=== PATIENT | female | born 1940 | race Caucasian/White ===

== ENCOUNTER 2022-10-16 11:48 | Inpatient (IN) | payer MEDICARE ==
[~2022-10-16] VITALS: Ht 162.6 cm; Wt 52.2 kg
[2022-10-16 11:56] VITALS: BP_SYST 133
--- NOTE | 2022-10-16 12:11 | NUR ---
Placed in room 02 . Placed on shelter monitor, blood pressure machine and pulse oximeter. To gown for exam. Side rails up. Report given to JACK VELAZQUEZ.
--- NOTE | 2022-10-16 12:35 | NUR ---
MD DR ARNOLD AT BEDSIDE
[2022-10-16 12:36] LABS: BASOPHILS # (AUTO) 0.1 K/uL (0.0-0.2); BASOPHILS % (AUTO) 0.4 % (0.0-2.0); EOSINOPHILS % (AUTO) 0.1 % (0.0-4.0); HEMATOCRIT 38.7 % (36-48); HEMOGLOBIN 13.2 g/dL (12.0-16.0); LYMPHOCYTES # (AUTO) 0.7 K/uL (1.0-5.5); LYMPHOCYTES % (AUTO) 4.3 % (20.5-51.5); MEAN CORPUSCULAR HEMOGLOBIN 31 pg (27-31); MEAN CORPUSCULAR HGB CONC 34 % (32-36); MEAN CORPUSCULAR VOLUME 92 fL (79.0-98.0); MONOCYTES % (AUTO) 6.3 % (1.7-9.3); NEUTROPHILS % (AUTO) 88.9 % (40.0-70.0); PLATELET COUNT (AUTO) 301 K/uL (130-430); RED CELL DISTRIBUTION WIDTH 13.4 % (9.0-15.0); WHITE BLOOD COUNT (AUTO) 15.7 K/uL (4.8-10.8)
--- NOTE | 2022-10-16 12:46 | NUR ---
PT BIBA AWAKE AND CONFUSED, AOX1. NO SOB OR DISTRESS. PT WAS BROUGHT IN BECAUSE HER SON CALLED 911 AFTER SEEING HIS MOM ON THE FLOOR AT HOME NEAR HER COUGH. PT SON DENIES FALL OR KO. HE SAID SHE SLID ON THE FLOOR AND WAS UNABLE TO GET UP. PT WAS VERY UNKEPT AND SOILED UPON ARRIVAL. PT HAS HX OF DEMENTIA.
[2022-10-16 12:54] LABS: ANION GAP 7 (5-15); CHLORIDE 106 mmol/L (98-107); CREATININE 0.72 mg/dL (0.55-1.30); GLUCOSE 117 mg/dL (70-99); UREA NITROGEN, BLOOD 29 mg/dL (8-21)
[2022-10-16 13:01] LABS: ALANINE AMINOTRANSFERASE 46 U/L (12-78); ALBUMIN 2.3 g/dL (3.4-4.8); ASPARTATE AMINOTRANSFERASE 61 U/L (10-37); TOTAL BILIRUBIN 0.9 mg/dL (0.0-1.0)
[2022-10-16 13:11] LABS: ACETAMINOPHEN < 1 ug/mL (1-30); ALCOHOL, BLOOD < 3 mg/dL (<10)
[2022-10-16 13:34] LABS: BILIRUBIN,URINE NEGATIVE (NEGATIVE); CLARITY/URINE CLEAR (CLEAR); COLOR,URINE YELLOW (YELLOW); GLUCOSE,URINE NEGATIVE (NEGATIVE); KETONES,URINE TRACE (NEGATIVE); LEUKOCYTE ESTERASE ,URINE NEGATIVE (NEGATIVE); NITRITE, URINE NEGATIVE (NEGATIVE); PROTEIN URINE TRACE (NEGATIVE); UROBILINOGEN,URINE 0.2 (0.2-1.0)
[2022-10-16 13:35] LABS: BLOOD, URINE TRACE (NEGATIVE)
[2022-10-16 13:42] LABS: BACTERIA,URINE None Seen /HPF (None Seen); MUCUS,URINE None Seen /LPF (None Seen); RBC,URINE 0-3 /HPF (0-3); WBC,URINE 0-3 /HPF (0-3)
[2022-10-16 13:49] LABS: BARBITURATE, URINE NEGATIVE (NEG <=200); BENZODIAZEPINE, URINE NEGATIVE (NEG <=150); CANNABINOID, URINE NEGATIVE (NEG <=50); COCAINE, URINE NEGATIVE (NEG <=150); METHAMPHETAMINES SCREEN,URINE NEGATIVE (NEG <=500); OPIATE, URINE NEGATIVE (NEG <=100); PHENCYCLIDINE SCREEN,URINE NEGATIVE (NEG <=25); UR TRICYCLIC ANTIDEPRESSANTS NEGATIVE (NEG <=300); URINE AMPHETAMINE NEGATIVE (NEG <=500); URINE METHADONE NEGATIVE (NEG <=200); URINE OXYCODONE SCREEN NEGATIVE (NEG <=100); URINE PROPOXYPHENE SCREEN NEGATIVE (NEG <=300)
--- NOTE | 2022-10-16 15:34 | NUR ---
DR. WOODS, [facility] DOC, PAGED BACK TO SPEAK TO DR. DUARTE REGARDING PT STATUS.
[2022-10-16] MEDS ORDERED: NACL 0.9% 1,000 ML IV ONE (16:00)
[2022-10-16] MEDS ORDERED: cefTRIAXone 1 GM in D5W 50 ML IV ONE (16:00)
[2022-10-16] MEDS ORDERED: cefTRIAXone 1 GM VIAL ONE (17:02)
--- NOTE | 2022-10-16 17:25 | NUR ---
Admit bed requested Patient will be admitted to care of Dr. PATEL. Admitted to TELE unit. Diagnosis LOC, CELLULITIS, DEHYDRATION Inpatient (Yes or No) YES Observation (Yes or No) NO Orientation concerns or request close to nursing station (Yes or No) NO Covid Status NEG On vent or bipap NO Isolation requirements NO Needs a sitter NO From Home (Yes or if No enter name of facility) HOME Requires Dialysis (Yes or No) NO Med Rec Completed (Yes of No) YES
--- NOTE | 2022-10-16 17:26 | NUR ---
PT SON SAY THAT THE PT DOES NOT TAKE MEDS AT HOME.
[2022-10-16] MEDS ORDERED: LR 1,000 ML IV SCH (17:30)
--- NOTE | 2022-10-16 18:06 | NUR ---
PT IN BED, VSS. SON AT BEDSIDE. PT WAS WAITINGFOR A MEEKS TRANSFER, BUT NOW WAITING FOR A ADMIT TELE ROOM.
--- NOTE | 2022-10-16 18:39 | NUR ---
Patient will be admitted to care of [facility]. Admitted to TELE unit. Will go to room 120A. Belongings list completed. Complete and up to date summary report printed. SBAR report to be given at bedside with opportunity for questions.
[2022-10-16 19:30] VITALS: BP_SYST 142
[2022-10-16] MEDS ORDERED: PIPERACILLIN/TAZO 2.25G/DEX-IS 50 ML IV ONE (21:15)
[2022-10-16] MEDS: D5LR 1,000 ML IV SCH (21:30)
[2022-10-16] MEDS ORDERED: ACETAMINOPHEN 325 MG TABLET PO PRN (21:30)
[2022-10-17] MEDS ORDERED: PIPERACILLIN/TAZO 2.25G/DEX-IS 50 ML IV SCH
[2022-10-17 00:24] VITALS: BP_SYST 116
[2022-10-17] MEDS: AMPICILLIN SODIUM/SULBACTAM NA 3 GM in NS 100 ML IV SCH ×4 (01:13→18:43)
--- NOTE | 2022-10-17 05:05 | NUR ---
CONSULTATION PAGED/CALLED Reason for Consultation: CELLULITIS Person Who was Notified: KRISTAN Consulting Physician: WENDY Oracle Specialist Specialty: Ordering Physician: JORGE
--- NOTE | 2022-10-17 05:38 | NUR ---
CONSULTATION PAGED/CALLED Reason for Consultation: ALOC Person Who was Notified: DR MAO Consulting Physician: DR MAO Cloth Handler Specialty: Ordering Physician: JORGE
--- NOTE | 2022-10-17 05:45 | NUR ---
SPEECH THERPYCONSULTATION PAGED/CALLED Reason for Consultation: SPEECH THERAPY Person Who was Notified: VOICE MAIL Consulting Physician: Supervisor Decorating Specialty: Ordering Physician: JORGE
[2022-10-17] MEDS: D5LR 1,000 ML IV SCH ×2 (06:26→23:22)
[2022-10-17 08:00] VITALS: BP_SYST 136
--- NOTE | 2022-10-17 08:00 | NUR ---
Initial Notes Patient is AOx1. Patient is confused. No ss of distress noted. Breathing is even and nonlabored, on room air. No SOB noted. Patient denies pain. No facial grimace noted. Vital signs obtained, as documented. Ultrasound being done at bedside. Safety precautions in place and call light within reach.
[2022-10-17 08:26] LABS: ANION GAP 7 (5-15); CALCIUM 8.7 mg/dL (8.4-11.0); CHLORIDE 112 mmol/L (98-107); CREATININE 0.58 mg/dL (0.55-1.30); GLUCOSE 89 mg/dL (70-99); UREA NITROGEN, BLOOD 25 mg/dL (8-21)
[2022-10-17 08:41] LABS: ALANINE AMINOTRANSFERASE 28 U/L (12-78); ALBUMIN 1.9 g/dL (3.4-4.8); ASPARTATE AMINOTRANSFERASE 53 U/L (10-37); FREE T4 (FREE THYROXINE) 1.3 ng/dl (0.8-1.5); THYROID STIMULATING HORMONE 4.04 uIu/mL (0.36-3.74); TOTAL BILIRUBIN 0.7 mg/dL (0.0-1.0)
[2022-10-17 09:05] LABS: BASOPHILS % (AUTO) 0.2 % (0.0-2.0); EOSINOPHILS # (AUTO) 0.1 K/uL (0.0-0.4); EOSINOPHILS % (AUTO) 0.5 % (0.0-4.0); HEMATOCRIT 32.5 % (36-48); LYMPHOCYTES # (AUTO) 0.7 K/uL (1.0-5.5); LYMPHOCYTES % (AUTO) 6.2 % (20.5-51.5); MEAN CORPUSCULAR HEMOGLOBIN 31 pg (27-31); MEAN CORPUSCULAR HGB CONC 34 % (32-36); MEAN CORPUSCULAR VOLUME 92 fL (79.0-98.0); MONOCYTES # (AUTO) 0.8 K/uL (0.0-1.0); MONOCYTES % (AUTO) 6.4 % (1.7-9.3); NEUTROPHILS # (AUTO) 10.4 K/uL (1.8-7.7); NEUTROPHILS % (AUTO) 86.7 % (40.0-70.0); PLATELET COUNT (AUTO) 271 K/uL (130-430); RED BLOOD CELL COUNT(AUTO) 3.55 MIL/uL (4.2-6.2); RED CELL DISTRIBUTION WIDTH 13.9 % (9.0-15.0)
[2022-10-17 09:13] LABS: CKMB RELATIVE INDEX 0.6 (0.0-2.9); CREATINE KINASE MB 1.9 ng/mL (0-3.6)
--- NOTE | 2022-10-17 10:07 | NUR ---
ATTENDING MD DR PATEL WAS CALLED, RE: RESULT-- POSITIVE FOR THROMBUS. SPOKE TO RADHA
--- NOTE | 2022-10-17 10:46 | NUR ---
PHYSICAL THERAPY ORDER HAS BEEN RECEIVED. RN REPORTS THAT THE ULTRASOUND INDICATES A DVT. PLAN: AWAIT CLEARANCE FROM MD. FOLLOW UP TOMORROW.
--- NOTE | 2022-10-17 11:29 | NUR ---
Notes Iv infiltrated. New IV inserted. 20 G Right forearm. Blood return. Flushed well. Addendum: 10/17/22 at 1225 by Kathy Brooks LVN Notes Iv infiltrated. New IV inserted. 20 G Left forearm. Blood return. Flushed well.
[2022-10-17] MEDS ORDERED: BALSAM PERU/CASTOR OIL 56.7 GM OINT...G. TP ONE (11:30)
--- NOTE | 2022-10-17 11:31 | NUR ---
MD FRANKS made aware of US Doppler results, positive for thrombus to L common femoral vein, nonocclusive. at bedside with patient, speaking to family. Addendum: 10/17/22 at 1135 by Kathy Brooks LVN Wrong patient chart Addendum: 10/17/22 at 1136 by Kathy Brooks LVN MD FRANKS made aware of US Doppler results, positive for thrombus to L common femoral vein, nonocclusive. at bedside with patient, speaking to family. * correct patient chart*
[2022-10-17] MEDS ORDERED: POTASSIUM CHLORIDE 20 MEQ TAB.PRT.SR PO ONE (11:45)
[2022-10-17 11:47] VITALS: BP_SYST 124
[2022-10-17 13:01] LABS: INR 1.1 (0.8-1.2)
--- NOTE | 2022-10-17 13:35 | NUR ---
ST EVALUATION COMPLETED. ST TX NOT INDICATED AT THIS TIME. RECOMMEND PO DIET OF PUREE/THIN LIQUID. 1:1 DISTANT SUPERVISION AND FULL ASPIRATION PRECAUTIONS.
--- NOTE | 2022-10-17 14:30 | NUR ---
Notes Patient has been cleaned and repositioned. Patient has wound on right medial and posterior ankle. Wound care done.
[2022-10-17] MEDS ORDERED: VANCOMYCIN HCL 1,000 MG in NS 250 ML IV SCH (16:00)
[2022-10-17 16:46] VITALS: BP_SYST 112
--- NOTE | 2022-10-17 17:13 | NUR ---
Notes Patient has low grade fever 99.4 F. Cooling measures in place. Bed is locked, alarm on and at lowest position. Call light within reach.
--- NOTE | 2022-10-17 17:40 | NUR ---
Notes Patient is afebrile. Patient denies pain. No ss of distress noted. Breathing is even and nonlabored, on room air. Bed locked, alarm on, and at lowest position. Call light within reach.
--- NOTE | 2022-10-17 18:51 | NUR ---
Closing Notes Patient is awake, eating dinner. No ss of distress noted. Breathing is even and nonlabored, on room air. Afebrile. No facial grimace noted. IVF running, IV patent. Patient is stable. All needs met. Bed locked, exist alarm on, and at lowest position. Call light within reach.
[2022-10-17 21:00] VITALS: BP_SYST 117
[2022-10-17] MEDS ORDERED: ENOXAPARIN SODIUM 30 MG/0.3 ML SYRINGE SUBCUT SCH (22:00)
[2022-10-17] MEDS: CEFEPIME 1 GM in D5W 50 ML IV SCH (23:23)
[2022-10-17] MEDS: APIXABAN 2.5 MG TABLET PO SCH (23:27)
[2022-10-18 00:06] VITALS: BP_SYST 118
[2022-10-18] MEDS: AMPICILLIN SODIUM/SULBACTAM NA 3 GM in NS 100 ML IV SCH ×2 (01:20→06:37)
[2022-10-18 01:26] VITALS: BP_SYST 127
[2022-10-18 07:35] LABS: BASOPHILS % (AUTO) 0.3 % (0.0-2.0); EOSINOPHILS # (AUTO) 0.2 K/uL (0.0-0.4); EOSINOPHILS % (AUTO) 1.5 % (0.0-4.0); HEMATOCRIT 31.4 % (36-48); HEMOGLOBIN 10.6 g/dL (12.0-16.0); LYMPHOCYTES # (AUTO) 0.9 K/uL (1.0-5.5); LYMPHOCYTES % (AUTO) 8.8 % (20.5-51.5); MEAN CORPUSCULAR HEMOGLOBIN 31 pg (27-31); MEAN CORPUSCULAR HGB CONC 34 % (32-36); MEAN CORPUSCULAR VOLUME 93 fL (79.0-98.0); MONOCYTES # (AUTO) 0.5 K/uL (0.0-1.0); MONOCYTES % (AUTO) 4.6 % (1.7-9.3); NEUTROPHILS # (AUTO) 8.9 K/uL (1.8-7.7); NEUTROPHILS % (AUTO) 84.8 % (40.0-70.0); PLATELET COUNT (AUTO) 248 K/uL (130-430); WHITE BLOOD COUNT (AUTO) 10.5 K/uL (4.8-10.8)
[2022-10-18 07:50] LABS: ANION GAP 6 (5-15); CALCIUM 8.2 mg/dL (8.4-11.0); CHLORIDE 109 mmol/L (98-107); CREATININE 0.62 mg/dL (0.55-1.30); GLUCOSE 110 mg/dL (70-99); UREA NITROGEN, BLOOD 19 mg/dL (8-21)
[2022-10-18 07:58] VITALS: BP_SYST 128
--- NOTE | 2022-10-18 07:58 | NUR ---
INITIAL ROUNDS Received pt AAOx1, very confused, no s/s resp distress, no s/s pain or discomfort. IVF infusing well to LFA at ordered rate with no s/s infiltration at this time. Noted dressing to right medial ankle clean, dry and intact. Unable to assess pt's posterior skin due to pt flat out refusing to turn. Will try again later. Side rails up x3, bed alarm on and room across from nursing station for safety. Call light within reach.
[2022-10-18] MEDS: APIXABAN 2.5 MG TABLET PO SCH ×2 (09:36→22:17)
[2022-10-18] MEDS: CEFEPIME 1 GM in D5W 50 ML IV SCH ×2 (09:38→22:16)
[2022-10-18] MEDS: BALSAM PERU/CASTOR OIL 56.7 GM OINT...G. TP SCH (09:40)
[2022-10-18 12:00] VITALS: BP_SYST 132
--- NOTE | 2022-10-18 14:51 | NUR ---
INFORMED RN VIOLETA SEVERAL TIMES( THRU DEWAYNE) THAT PT IS OFF MONITOR. PER RN VIOLETA, PT REMOVES THE TELE BOX AND REFUSED TO KEEP IT ON.
[2022-10-18 16:00] VITALS: BP_SYST 127
--- NOTE | 2022-10-18 17:40 | NUR ---
Dietitian Recommendations * Continue puree diet, per ST * Recommend daily MVI, 250mg VIT C for wounds * Consider lactulose for elevated ammonia * Encourage good PO intake Please refer to nutritional assessment for details, thanks! CC, MPH, RDN
--- NOTE | 2022-10-18 18:20 | NUR ---
WOUND CARE Dressing to right medial ankle removed, area cleansed with normal saline, Venelex ointment applied to wound bed, moisture barrier cream applied to periwound, covered with a foam dressing. Wound bed 65% dark pink tissue, 25% yellow tissue and 10% light brown tissue, periwound pink, no odor, minimal drainage. Wound measures 6.1 cm x 3.0 cm. Pt tolerated well.
--- NOTE | 2022-10-18 19:15 | NUR ---
OPENING NOTES Patient resting in bed - no s/s pain or distress noted. Respirations even and unlabored - head of bed elevated. NO IV SITE. Bed locked and in lowest position. Call light within reach - bed alarm on.
--- NOTE | 2022-10-18 19:32 | NUR ---
CLOSING NOTE Pt resting quietly in bed with no s/s resp distress, no c/o pain or discomfort. Pt accidently dislodged her IV, endorsed to next shift nurse-he stated he will place a new one. All precautions remain in place. Call light within reach.
[2022-10-18 20:00] VITALS: BP_SYST 139
--- NOTE | 2022-10-18 21:56 | NUR ---
new iv inserted LFA 22G
[2022-10-18] MEDS: D5LR 1,000 ML IV SCH (22:27)
[2022-10-19 00:20] VITALS: BP_SYST 153
[2022-10-19] MEDS: D5LR 1,000 ML IV SCH ×2 (06:34→21:43)
--- NOTE | 2022-10-19 07:46 | NUR ---
CLOSING NOTES Patient resting in bed - no s/s pain or distress noted. Respirations even and unlabored - head of bed elevated. NO IV SITE - pt ripped out IV approx an hour ago endorsed to dayshift. Bed locked and in lowest position. Call light within reach - bed alarm on.
[2022-10-19 08:34] VITALS: BP_SYST 154
--- NOTE | 2022-10-19 08:34 | NUR ---
INITIAL ROUNDS Received pt AAOx1, confused but more cooperative today, no s/s resp distress, no s/s pain or discomfort. IVF infusing well to LFA at ordered rate with no s/s infiltration at this time. Noted dressing to right medial ankle clean, dry and intact. Pt repositioned in bed with pillow support and heels off-loaded for skin care and comfort. Side rails up x3, bed alarm on and room across from nursing station for safety. Call light within reach.
[2022-10-19] MEDS: CEFEPIME 1 GM in D5W 50 ML IV SCH ×2 (09:56→21:35)
[2022-10-19] MEDS: BALSAM PERU/CASTOR OIL 56.7 GM OINT...G. TP SCH (09:58)
[2022-10-19] MEDS: APIXABAN 2.5 MG TABLET PO SCH ×2 (09:59→21:34)
[2022-10-19 12:24] VITALS: BP_SYST 114
--- NOTE | 2022-10-19 14:10 | NUR ---
ROUNDS/BM Pt had large, soft bowel movement, pt cleaned up with assist of SAND CONDITIONER MACHINE, new gown and bedding placed. Pt repositioned for skin care and safety. All precautions remain in place.
[2022-10-19 16:24] VITALS: BP_SYST 100
--- NOTE | 2022-10-19 18:49 | NUR ---
CLOSING NOTE Pt resting quietly in bed with no s/s resp distress, no c/o pain or discomfort. IVF infusing well at ordered rate with no s/s infiltration to site. Aspiration, skin and safety precautions remain in place. Call light within reach.
[2022-10-20 07:14] LABS: BASOPHILS # (AUTO) 0.1 K/uL (0.0-0.2); BASOPHILS % (AUTO) 0.6 % (0.0-2.0); EOSINOPHILS # (AUTO) 0.3 K/uL (0.0-0.4); HEMOGLOBIN 10.6 g/dL (12.0-16.0); LYMPHOCYTES # (AUTO) 1.2 K/uL (1.0-5.5); LYMPHOCYTES % (AUTO) 13.9 % (20.5-51.5); MEAN CORPUSCULAR HEMOGLOBIN 32 pg (27-31); MEAN CORPUSCULAR HGB CONC 34 % (32-36); MEAN CORPUSCULAR VOLUME 92 fL (79.0-98.0); MONOCYTES # (AUTO) 0.7 K/uL (0.0-1.0); MONOCYTES % (AUTO) 7.8 % (1.7-9.3); NEUTROPHILS # (AUTO) 6.2 K/uL (1.8-7.7); NEUTROPHILS % (AUTO) 73.7 % (40.0-70.0); PLATELET COUNT (AUTO) 293 K/uL (130-430); RED BLOOD CELL COUNT(AUTO) 3.37 MIL/uL (4.2-6.2); RED CELL DISTRIBUTION WIDTH 13.7 % (9.0-15.0); WHITE BLOOD COUNT (AUTO) 8.4 K/uL (4.8-10.8)
[2022-10-20 07:44] LABS: ALANINE AMINOTRANSFERASE 32 U/L (12-78); ALBUMIN 1.7 g/dL (3.4-4.8); ANION GAP 2 (5-15); ASPARTATE AMINOTRANSFERASE 33 U/L (10-37); CALCIUM 8.6 mg/dL (8.4-11.0); CHLORIDE 110 mmol/L (98-107); CREATININE 0.67 mg/dL (0.55-1.30); GLUCOSE 98 mg/dL (70-99); TOTAL BILIRUBIN 0.3 mg/dL (0.0-1.0); UREA NITROGEN, BLOOD 16 mg/dL (8-21)
[2022-10-20] MEDS: CEFEPIME 1 GM in D5W 50 ML IV SCH ×2 (11:48→20:16)
[2022-10-20] MEDS: APIXABAN 2.5 MG TABLET PO SCH ×2 (11:50→20:16)
[2022-10-20] MEDS: BALSAM PERU/CASTOR OIL 56.7 GM OINT...G. TP SCH (11:52)
[2022-10-20] MEDS: D5LR 1,000 ML IV SCH (11:56)
[2022-10-20 20:00] VITALS: BP_SYST 117
--- NOTE | 2022-10-20 20:00 | NUR ---
OPENING NOTE PT IN BED AOX1. PT ONLY ABLE TO STATE HER NAME AND WITH HELP FORM SON WAS ABLE TO STATE HER BIRTHDAY. PT'S SON AT BEDSIDE. PT REQUESTING HER CANE SO SHE CAN WALK. PT HAS IVF INFUSING IN THE LEFT FA WITH NO INFILTRATION NOTED. PT CLOSE TO NURSE'S STATION AND WILL CONTINUE TO MONITOR FOR SAFETY
--- NOTE | 2022-10-20 20:15 | NUR ---
PT HAS LOOSE BM PT HAS DARK LOOSE BM MODERATE AMOUNT
--- NOTE | 2022-10-20 20:35 | NUR ---
SON QUESTION IF PT IS GOING TO COME BACK HOME PT ASKED IF PT WAS GOING TO COME HOME, NOT SURE IF HE WANTS HER TO GO TO A FACILITY
[2022-10-21 12:15] VITALS: BP_SYST 159
--- NOTE | 2022-10-21 14:10 | NUR ---
Enrollment Coordinator WINDSHIELD TECHNICIAN received a referral to see pt. from Dr. Dyer for "Family Issues" WINDSHIELD TECHNICIAN met with pt. prior and pt. was not able to offer details re her care or who she resides with on contact info. WINDSHIELD TECHNICIAN asked pt. if she could call her son. After WINDSHIELD TECHNICIAN saw some other pts. , WINDSHIELD TECHNICIAN called son who stated he was visiting his mom.WINDSHIELD TECHNICIAN met with son, Ciro Butcher [phone] at bedside. WINDSHIELD TECHNICIAN introduced self to son and asked how she could help him and his mom. Son was wondering about mom's health and the plan of care. WINDSHIELD TECHNICIAN explained to son his mom would most likely need to go to a SNF because she is unable to stand and walk. WINDSHIELD TECHNICIAN asked son if he had stated he wanted to take pt. home. Son stated he was just wanting his mom to get well. WINDSHIELD TECHNICIAN educated son on how a SNF would help his mom. Additionally, pt still has diarrhea and since pt. cannot stand or walk, it will be hard for son to car for his mom at this moment. Son stated he was in agreement for a SNF. [facility] CM Kaela will be notified so she can be in contact with the CM from [place]. WINDSHIELD TECHNICIAN will remain available as needed.
[2022-10-21] MEDS: D5LR 1,000 ML IV SCH (14:40)
[2022-10-21] MEDS: CEFEPIME 1 GM in D5W 50 ML IV SCH ×2 (14:40→22:08)
[2022-10-21] MEDS: BALSAM PERU/CASTOR OIL 56.7 GM OINT...G. TP SCH (14:41)
[2022-10-21] MEDS: APIXABAN 2.5 MG TABLET PO SCH ×2 (14:50→22:06)
--- NOTE | 2022-10-21 16:57 | NUR ---
Nutrition F/U: Admitting Diagnosis: ALOC, Dehydration, Cellulitis Reviewed Pertinent Medical/Surgical Hx Medical Record, Patient Medical History Comment: per EMR: 82y female with PMHx dementia, chronic right ankle wound/cellulitis, cachexia, severe PEM, and a [place] pt BIBA from home after son found her on the floor. Pt reported with progressively worsened weakness and confusion. Pt found with right leg DVT. [place] pt, pending transfer Subjective Information: RD rounded to patient room and s/w patient bedside. RD witnessed pt sitting up on the side of her hospital bed. Pt reports her appetite is good and endorses liking Vanilla and Chocolate flavor Ensure. Per EMR chart review, patient PO intake 60% x 5 meals with varying levels of intake. Pt with LBM 10/20 x 1; 10/19 x 4 BM. No documented GI symptoms and patient noted with soft abdomen. -- 10/21 Patient agreeable to NFPE: Moderate fat loss orbital region, buccal region, and triceps. Moderate muscle wasting muslim region, clavicle region, shoulder/deltoid region, hand region, and thigh/patellar region. Current Diet Order/Nutrition Support: Mechanical Soft, Raúl BID, Ensure HP TID x 2 days Patient/Significant Other Able To Verbalize Education Provided Not Indicated Pertinent Medications: LR @ 60mL, Eliquis Pertinent Labs: Drawn 10/20 - Hgb 10.6 L, BG 98 WNL, Ca/BUN/Cre/K WNL; 10/17 NH3 49 H Height (Feet) 5 feet Height (Inches) 4.00 inches Weight (Pounds) 115 pounds Weight (Calculated Kilograms) 52.834496 kilograms Patient Weight 52.163 kg Body Mass Index 19.74 kg/m2 %IBW 96 [place]/Adjusted Body Weight 120#/ 54.5kg Recent Weight Change No Weight Status Appropriate Gastrointestinal Symptoms None Last BM Oct 20, 2022 x 1 Difficulty With: Swallowing Food Allergies No Usual Diet At Home Regular, per pt report Current % PO 60% x 5 meals = Fair Skin Integrity Comment: Skip 13: R ankle cellulitis, L knee ecchymosis; +1 non-pitting R knee edema noted 10/20 Estimated Energy Expenditure (kcals/day) 4447-6644 (30-35 kcal/kg for GERIAT underweight BMI, cellulitis) Estimated Protein Required (g/day) 62-78 (1.2-1.5 g/kg for GERIAT underweight BMI, cellulitis) Estimated Fluid Required (l/day) 1.5-1.8 (1mL/kcal for maintenance) Problem/Etiology/Signs/Symptoms * Swallowing difficulty r/t ALOC/dementia a/e/b puree diet order (On-going, now MS diet) * Increased nutrient needs (energy, PRO, VIT/MIN) r/t metabolic demands a/e/b estimated nutritional needs for underweight BMI, wound (New) * 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 a/e/b NFPE w/ moderate muscle wasting, moderate fat loss (New) Expected Outcomes/Goals PO intake provides >85% est nutritional needs, slow weight gain desired w/in 1-2lbs per week, improvements in skin integrity, nutrition-related labs WNL, normal bowel function w/BM q 1-3 days Dietitian Recommendations * Continue mechanical soft diet, Raúl BID, Ensure HP TID (vanilla/adrianna) * Rec daily MVI, 250mg VIT C for wounds * Encourage good PO intake Moderate Risk: F/U in 3-5 days Protein Energy Malnutrition: Indicated 10/21/22 Patient qualifies for moderate malnutrition in the context of chronic disease (dementia) --Moderate fat loss; Moderate muscle wasting
--- NOTE | 2022-10-21 17:04 | NUR ---
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 CC, MPH, RDN
[2022-10-21 17:46] VITALS: BP_SYST 126
[2022-10-21 21:00] VITALS: BP_SYST 123
[2022-10-22 04:05] VITALS: BP_SYST 142
--- NOTE | 2022-10-22 06:43 | NUR ---
total care with adl, no resp distress noted, patient confused, incontinent of urine, pericare given, complete bed change and bath x2 this shift, patient with no iv access, placed a right arm iv 20g, ivf and iv abx given, patient pulled out iv, no access at this time, right leg dressing removed for ID doctor to assess, new dressing applied
--- NOTE | 2022-10-22 07:07 | NUR ---
receive mike shetty from the material handler 2nd shift rn in a stable condition with admitting diagnosis of cellulitis dehydration altered level of consciousness aox1 with episode of confusion . no complain of pain at this time . no sign and symptoms of respiratory distress . will continue to monitor
[2022-10-22] MEDS: D5LR 1,000 ML IV SCH ×2 (07:26→22:39)
--- NOTE | 2022-10-22 07:53 | NUR ---
PHYSICAL THERAPY CO-SIGN The Physical Therapy Progress Notes documented by Orthopedic Radiologic Technologist have been reviewed. Reviewed/Co-Signed by: Kemal Noel Documentation Done by: WIN DAWKINS PTA Addendum: 10/22/22 at 0753 by Kemal Noel PT Amended: Links added.
[2022-10-22 08:00] VITALS: BP_SYST 141
[2022-10-22] MEDS: CEFEPIME 1 GM in D5W 50 ML IV SCH ×2 (10:39→22:26)
[2022-10-22] MEDS: APIXABAN 2.5 MG TABLET PO SCH ×2 (10:40→22:25)
[2022-10-22] MEDS: BALSAM PERU/CASTOR OIL 56.7 GM OINT...G. TP SCH (10:44)
[2022-10-22 11:31] VITALS: BP_SYST 138
--- NOTE | 2022-10-22 13:30 | NUR ---
endorse to maria fernanda for change of assignment for continuity of care
--- NOTE | 2022-10-22 13:36 | NUR ---
Assumed care from Shaan RN, pt in bed awake, confused. pulled out her IV at this time. Safety precaution observed. to call for help as needed.
--- NOTE | 2022-10-22 15:00 | NUR ---
Notes Has bowel movement, cleaned and repositioned. Iv started.
[2022-10-22 16:19] VITALS: BP_SYST 139
--- NOTE | 2022-10-22 18:00 | NUR ---
Notes- Pt pulled IV out again and refused to start a new one. No distress. Will endorse
[2022-10-22 20:15] VITALS: BP_SYST 117
--- NOTE | 2022-10-22 21:00 | NUR ---
no distress noted, comfort maintained, incontinent, pericare given, bath given, shamar po intake, patient given a snack, right foot dressing clean and intact
[2022-10-23 00:17] VITALS: BP_SYST 128
--- NOTE | 2022-10-23 06:30 | NUR ---
UNEVENTFUL SHIFT, NO RESP DISTRESS NOTED, COMFORT MAINTAINED, SLEPT WELL, LEFT ARM IV FLUID INFUSING WITHOUT DIFFICULTY, PERICARE GIVEN, MARVIN IV ABX
--- NOTE | 2022-10-23 07:01 | NUR ---
receive the patient from the glass lined tank repairer rn in a stable condition with admitting diagnosis altered level of consciousness , confuse . no complain of pain at this time . no sign and symptoms of respiratory distress . will continue to monitor
[2022-10-23] MEDS: CEFEPIME 1 GM in D5W 50 ML IV SCH ×2 (09:50→22:26)
[2022-10-23] MEDS: APIXABAN 2.5 MG TABLET PO SCH ×2 (09:51→22:28)
[2022-10-23] MEDS: BALSAM PERU/CASTOR OIL 56.7 GM OINT...G. TP SCH (09:51)
[2022-10-23] MEDS: D5LR 1,000 ML IV SCH (09:53)
[2022-10-23 12:00] VITALS: BP_SYST 125
[2022-10-23 16:30] VITALS: BP_SYST 127
--- NOTE | 2022-10-23 18:07 | NUR ---
will endorse to [facility] shift lead rn for continuity of care . for transfer to snif if the bed is available
--- NOTE | 2022-10-23 19:15 | NUR ---
Received report from FRANCISCO Barrientos. Pt AAO x1, asleep at present. No s/s of distress noted. Will cont to monitor as per 's protocol. Addendum: 10/24/22 at 0737 by [facility] Critsian, JACK SANTIAGO Name Correction Received report from Shaan
[2022-10-23 20:23] VITALS: BP_SYST 129
--- NOTE | 2022-10-23 23:50 | NUR ---
Meds pass done. Pt tolerated IV meds well, Asleep at present
[2022-10-24 00:27] VITALS: BP_SYST 119
[2022-10-24] MEDS: D5LR 1,000 ML IV SCH ×2 (03:14→19:54)
--- NOTE | 2022-10-24 04:00 | NUR ---
On rounds pt asleep, no s/s of distress noted.
--- NOTE | 2022-10-24 07:04 | NUR ---
receive the patient in a stable condition with admitting diagnosis of altered level of consciousness , dehydration , cellulitis , aox1 with confusion . no complain of pain at thsi time . no sign and symptoms of respiratory distress . will continue to monitor
--- NOTE | 2022-10-24 07:28 | NUR ---
Pt endorsed Report given to Shaan SANTIAGO
[2022-10-24 08:00] VITALS: BP_SYST 125
--- NOTE | 2022-10-24 08:30 | NUR ---
insert an iv on left forearm . patent saline lock
[2022-10-24] MEDS: BALSAM PERU/CASTOR OIL 56.7 GM OINT...G. TP SCH (10:11)
[2022-10-24] MEDS: APIXABAN 2.5 MG TABLET PO SCH ×2 (10:12→23:03)
[2022-10-24 12:14] VITALS: BP_SYST 101
[2022-10-24 13:11] LABS: BASOPHILS # (AUTO) 0.1 K/uL (0.0-0.2); EOSINOPHILS # (AUTO) 0.1 K/uL (0.0-0.4); EOSINOPHILS % (AUTO) 1.1 % (0.0-4.0); HEMATOCRIT 31.6 % (36-48); HEMOGLOBIN 10.7 g/dL (12.0-16.0); LYMPHOCYTES # (AUTO) 0.8 K/uL (1.0-5.5); LYMPHOCYTES % (AUTO) 6.9 % (20.5-51.5); MEAN CORPUSCULAR HEMOGLOBIN 31 pg (27-31); MEAN CORPUSCULAR HGB CONC 34 % (32-36); MEAN CORPUSCULAR VOLUME 92 fL (79.0-98.0); MONOCYTES % (AUTO) 8.3 % (1.7-9.3); NEUTROPHILS % (AUTO) 82.7 % (40.0-70.0); PLATELET COUNT (AUTO) 379 K/uL (130-430); RED BLOOD CELL COUNT(AUTO) 3.43 MIL/uL (4.2-6.2); RED CELL DISTRIBUTION WIDTH 14.2 % (9.0-15.0); WHITE BLOOD COUNT (AUTO) 12.1 K/uL (4.8-10.8)
[2022-10-24 13:25] LABS: ANION GAP 8 (5-15); CALCIUM 8.3 mg/dL (8.4-11.0); CHLORIDE 107 mmol/L (98-107); CREATININE 0.72 mg/dL (0.55-1.30); GLUCOSE 105 mg/dL (70-99); UREA NITROGEN, BLOOD 25 mg/dL (8-21)
[2022-10-24 13:30] LABS: ALANINE AMINOTRANSFERASE 26 U/L (12-78); ALBUMIN 2.2 g/dL (3.4-4.8); ASPARTATE AMINOTRANSFERASE 27 U/L (10-37); TOTAL BILIRUBIN 0.4 mg/dL (0.0-1.0)
[2022-10-24] MEDS: CEFEPIME 1 GM in D5W 50 ML IV SCH ×2 (14:32→23:06)
[2022-10-24 16:55] VITALS: BP_SYST 104
--- NOTE | 2022-10-24 18:48 | NUR ---
will endorse to retail shift supervisor rn for continuity of care for transfer to a SNIF if bed is available
[2022-10-24 21:27] VITALS: BP_SYST 114
[2022-10-25 00:17] VITALS: BP_SYST 125
--- NOTE | 2022-10-25 07:01 | NUR ---
receive the patinet from the mini shifter rn in a stable condition with admitting diagnosis of altered level of consciousness cellulitis . aox2 with episode of confusion . no complain of pain at this time . no sign and symptoms of respiratory distress . will continue to monitor
--- NOTE | 2022-10-25 07:51 | NUR ---
PHYSICAL THERAPY CO-SIGN The Physical Therapy Progress Notes documented by [employer] have been reviewed. Reviewed/Co-Signed by: Kemal Noel Documentation Done by: WIN DAWKINS PTA Addendum: 10/25/22 at 0752 by Kemal Noel PT Amended: Links added.
--- NOTE | 2022-10-25 07:51 | NUR ---
PHYSICAL THERAPY CO-SIGN The Physical Therapy Progress Notes documented by Biodiesel Production Technician have been reviewed. Reviewed/Co-Signed by: Kemal Noel Documentation Done by: WIN DAWKINS PTA Addendum: 10/25/22 at 0752 by Kemal Noel PT Amended: Links added.
[2022-10-25 08:00] VITALS: BP_SYST 125
[2022-10-25] MEDS: APIXABAN 2.5 MG TABLET PO SCH ×2 (08:30→19:56)
[2022-10-25] MEDS: CEFEPIME 1 GM in D5W 50 ML IV SCH ×2 (09:29→19:56)
[2022-10-25 13:45] VITALS: BP_SYST 105
[2022-10-25] MEDS: BALSAM PERU/CASTOR OIL 56.7 GM OINT...G. TP SCH (14:34)
[2022-10-25] MEDS: D5LR 1,000 ML IV SCH (14:37)
[2022-10-25 15:42] VITALS: BP_SYST 132
--- NOTE | 2022-10-25 18:42 | NUR ---
will endorse to night assistant rn for continuity of care
[2022-10-25 20:00] VITALS: BP_SYST 150
--- NOTE | 2022-10-25 23:36 | NUR ---
Patient in bed. No acute distress noted. Will continue to monitor.
--- NOTE | 2022-10-25 23:37 | NUR ---
Turned repositioned q2. Will continue to monitor.
[2022-10-25 23:50] VITALS: BP_SYST 130
[2022-10-26] MEDS: D5LR 1,000 ML IV SCH (04:08)
--- NOTE | 2022-10-26 07:02 | NUR ---
receive the patinet from the nighty shift rn in a stable condition with admitting diagnosis of altered level of consciousness cellulitis aox1 with episode of confusion . no sign and symptoms of respiratory distress . will continue to monitor
--- NOTE | 2022-10-26 07:04 | NUR ---
receive the patinet
[2022-10-26 08:00] VITALS: BP_SYST 110
[2022-10-26] MEDS: APIXABAN 2.5 MG TABLET PO SCH ×2 (08:48→21:05)
[2022-10-26] MEDS: BALSAM PERU/CASTOR OIL 56.7 GM OINT...G. TP SCH (08:48)
[2022-10-26 10:01] LABS: BASOPHILS # (AUTO) 0.1 K/uL (0.0-0.2); BASOPHILS % (AUTO) 0.5 % (0.0-2.0); EOSINOPHILS # (AUTO) 0.1 K/uL (0.0-0.4); EOSINOPHILS % (AUTO) 0.6 % (0.0-4.0); HEMATOCRIT 33.1 % (36-48); HEMOGLOBIN 11.3 g/dL (12.0-16.0); LYMPHOCYTES # (AUTO) 1.3 K/uL (1.0-5.5); LYMPHOCYTES % (AUTO) 10.6 % (20.5-51.5); MEAN CORPUSCULAR HEMOGLOBIN 31 pg (27-31); MEAN CORPUSCULAR HGB CONC 34 % (32-36); MEAN CORPUSCULAR VOLUME 92 fL (79.0-98.0); MONOCYTES # (AUTO) 0.9 K/uL (0.0-1.0); MONOCYTES % (AUTO) 7.7 % (1.7-9.3); NEUTROPHILS # (AUTO) 9.5 K/uL (1.8-7.7); NEUTROPHILS % (AUTO) 80.6 % (40.0-70.0); PLATELET COUNT (AUTO) 436 K/uL (130-430); RED CELL DISTRIBUTION WIDTH 14.1 % (9.0-15.0); WHITE BLOOD COUNT (AUTO) 11.8 K/uL (4.8-10.8)
[2022-10-26 10:17] LABS: ALANINE AMINOTRANSFERASE 38 U/L (12-78); ALBUMIN 2.3 g/dL (3.4-4.8); ANION GAP 9 (5-15); ASPARTATE AMINOTRANSFERASE 36 U/L (10-37); CALCIUM 8.7 mg/dL (8.4-11.0); CHLORIDE 102 mmol/L (98-107); CREATININE 0.79 mg/dL (0.55-1.30); GLUCOSE 93 mg/dL (70-99); TOTAL BILIRUBIN 0.6 mg/dL (0.0-1.0); UREA NITROGEN, BLOOD 23 mg/dL (8-21)
--- NOTE | 2022-10-26 10:40 | NUR ---
Nutrition F/U: Admitting Diagnosis: ALOC, Dehydration, Cellulitis Reviewed Pertinent Medical/Surgical Hx Medical Record, Patient Medical History Comment: per EMR: 82y female with PMHx dementia, chronic right ankle wound/cellulitis, cachexia, severe PEM, and a worth pt BIBA from home after son found her on the floor. Pt reported with progressively worsened weakness and confusion. Pt found with right leg DVT. [place] pt, pending transfer Subjective Information: RD rounded to patient room and s/w patient bedside. Pt was laying down and had not touched her meal. RD saw Ensure ONS on tray. Pt was a bit incoherent d/t dementia. RD did not proceed to ask interview questions. Per EMR chart review, patient has good PO intake 73% x 11 meals. Pt with LBM 10/25 x 2. No documented GI symptoms Current Diet Order/Nutrition Support: Mechanical Soft, Raúl BID, Ensure HP TID x 6 days Patient/Significant Other Unable To Verbalize Education Provided Not Indicated Pertinent Medications: LR @ 60mL, Eliquis NEW Pertinent Labs: Drawn 10/24- Hgb 10.7 L, BG 105 H, BUN 25 H, Cre/K WNL; 10/17 NH3 49 H Height (Feet) 5 feet Height (Inches) 4.00 inches Weight (Pounds) 115 pounds Weight (Calculated Kilograms) 52.357007 kilograms Patient Weight 52.163 kg Body Mass Index 19.74 kg/m2 %IBW 96 [place]/Adjusted Body Weight 120#/ 54.5kg Recent Weight Change No Weight Status Appropriate Gastrointestinal Symptoms None Last BM Oct 25, 2022 x 2 Difficulty With: Swallowing Food Allergies No Usual Diet At Home Regular, per pt report Current % PO 73% x 11 meals = Good Skin Integrity Comment: Skip 16: R ankle cellulitis, L knee scab Estimated Energy Expenditure (kcals/day) 0823-2611 (30-35 kcal/kg CBW for GERIAT underweight BMI, cellulitis) Estimated Protein Required (g/day) 62-78 (1.2-1.5 g/kg CBW for GERIAT underweight BMI, cellulitis) Estimated Fluid Required (l/day) 1.5-1.8 (1mL/kcal for maintenance) Problem/Etiology/Signs/Symptoms * Swallowing difficulty r/t ALOC/dementia a/e/b puree diet order (On-going, now MS diet) * Increased nutrient needs (energy, PRO, VIT/MIN) r/t metabolic demands a/e/b estimated nutritional needs for underweight BMI, wound (ongoing) * 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 a/e/b NFPE w/ moderate muscle wasting, moderate fat loss (ongoing) Expected Outcomes/Goals PO intake provides >85% est nutritional needs, slow weight gain desired w/in 1-2lbs per week, improvements in skin integrity, nutrition-related labs WNL, normal bowel function w/BM q 1-3 days Dietitian Recommendations * Continue mechanical soft diet, Raúl BID, Ensure HP TID (vanilla/adrianna) * Rec daily MVI, 250mg VIT C for wounds * Encourage good PO intake Moderate Risk: F/U in 3-5 days Protein Energy Malnutrition: Indicated 10/21/22 Patient qualifies for moderate malnutrition in the context of chronic disease (dementia) --Moderate fat loss; Moderate muscle wasting GS, MPH, RD
--- NOTE | 2022-10-26 10:41 | NUR ---
Dietitian Recommendations * Continue mechanical soft diet, Raúl BID, Ensure HP TID (vanilla/adrianna) * Rec daily MVI, 250mg VIT C for wounds * Encourage good PO intake GS, MPH, RD Please refer to RD F/U for further details
[2022-10-26] MEDS: CEFEPIME 1 GM in D5W 50 ML IV SCH ×2 (11:36→23:30)
[2022-10-26 12:00] VITALS: BP_SYST 125
[2022-10-26] MEDS ORDERED: MEMANTINE HCL 5 MG TABLET PO ONE (14:15)
[2022-10-26 16:00] VITALS: BP_SYST 115
[2022-10-26] MEDS ORDERED: QUEtiapine FUMARATE 25 MG TABLET PO SCH (18:00)
--- NOTE | 2022-10-26 18:46 | NUR ---
will endorse to shift foreman rn for continuity of care . still awaiting for a bed on the appropriate snif
[2022-10-26 21:00] VITALS: BP_SYST 129
[2022-10-26] MEDS: DONEPEZIL HCL 5 MG TABLET (ARICEPT) PO SCH (21:03)
--- NOTE | 2022-10-26 21:35 | NUR ---
New IV START 22 GAUGE Left FA tolerated , site clean .
[2022-10-27 00:59] VITALS: BP_SYST 118
--- NOTE | 2022-10-27 01:02 | NUR ---
Hourly Rounding patient Resting is Fall Risk comfort measures implemented call bazan given to patient / .
--- NOTE | 2022-10-27 05:06 | NUR ---
wound care to Right ankle implemented cleansed area NSS & foam dressing applied , PT tolerated .
--- NOTE | 2022-10-27 07:02 | NUR ---
receive the patient from the machinist 2nd shift rn in a stable condition with admitting diagnosis of altered level of consciousness aox1 with episode of confusion . no sign and symptoms of respiratory distress no complain of pain at this time . will continue to monitor
[2022-10-27] MEDS: MEMANTINE HCL 5 MG TABLET PO SCH (09:36)
[2022-10-27] MEDS: APIXABAN 2.5 MG TABLET PO SCH ×2 (09:37→21:51)
[2022-10-27] MEDS: BALSAM PERU/CASTOR OIL 56.7 GM OINT...G. TP SCH (09:37)
[2022-10-27] MEDS: CEFEPIME 1 GM in D5W 50 ML IV SCH ×2 (11:15→21:51)
[2022-10-27 12:06] VITALS: BP_SYST 117
[2022-10-27 16:17] VITALS: BP_SYST 116
[2022-10-27] MEDS: QUEtiapine FUMARATE 25 MG TABLET PO SCH (17:54)
--- NOTE | 2022-10-27 18:19 | NUR ---
will endorse to date night caregiver rn for continuity of care . for discharge to if
[2022-10-27 21:00] VITALS: BP_SYST 119
[2022-10-27] MEDS: DONEPEZIL HCL 5 MG TABLET (ARICEPT) PO SCH (21:50)
--- NOTE | 2022-10-27 22:15 | NUR ---
Hourly Rounding patient Resting verbally Responsive , large stool BM noted bed bath given procedure tolerated .
[2022-10-28 01:08] VITALS: BP_SYST 109
--- NOTE | 2022-10-28 02:41 | NUR ---
wound care right ankle areas dry scabs , cleansed with NSS foam dressings applied procedure tolerated / .
--- NOTE | 2022-10-28 07:59 | NUR ---
PHYSICAL THERAPY CO-SIGN The Physical Therapy Progress Notes documented by Traveler Changer have been reviewed. Reviewed/Co-Signed by: Kemal Noel Documentation Done by: WIN DAWKINS PTA Addendum: 10/28/22 at 0800 by Kemal Noel PT Amended: Links added.
[2022-10-28 08:00] VITALS: BP_SYST 128
[2022-10-28] MEDS: MEMANTINE HCL 5 MG TABLET PO SCH (08:36)
[2022-10-28] MEDS: APIXABAN 2.5 MG TABLET PO SCH ×2 (08:36→22:06)
[2022-10-28] MEDS: QUEtiapine FUMARATE 25 MG TABLET PO SCH ×2 (08:37→18:04)
[2022-10-28] MEDS: BALSAM PERU/CASTOR OIL 56.7 GM OINT...G. TP SCH (08:37)
[2022-10-28 14:11] VITALS: BP_SYST 113
[2022-10-28] MEDS: CEFEPIME 1 GM in D5W 50 ML IV SCH ×2 (14:20→23:00)
--- NOTE | 2022-10-28 16:19 | NUR ---
0800: ASLEEP EASILY AROUSE, ORIENTED X [address] NO S/S OF ANY ACUTE DISTRESS NOTED. ABLE TO VERBALIZE NEEDS NO C/O ANY PAIN OR DISCOMFORT @ THIS TIME. TOLERATED PO WELL WITH FAIR APPETITE. 1230: TOLERATED WITH BETTER APPETITE 1500: ADMINISTERED IV ANTIBIOTIC W/O ANY ADVERSE REACTION NOTED. PATIENT IS [facility] PATIENT NO PHONE CALL FROM H[facility]IA REGARDING DC' HOME WITH PT.
[2022-10-28 17:42] VITALS: BP_SYST 127
--- NOTE | 2022-10-28 18:50 | NUR ---
VS REMAIN STABLE, AFEBRILE, FAIR APPETITE NO CHANGE IN LOC. WILL ENDORSE PATIENT TO PM SHIFT NURSE.
[2022-10-28 20:00] VITALS: BP_SYST 117; BP_SYST 142
[2022-10-28] MEDS: DONEPEZIL HCL 5 MG TABLET (ARICEPT) PO SCH (22:06)
[2022-10-29] VITALS (7 sets, daily range): BP systolic 113–135
--- NOTE | 2022-10-29 07:15 | NUR ---
OPENING NOTE RECEIVED SBAR FROM NIGHT RN. PATIENT IN BED RESPIRATIONS EVEN, NON LABORED, BED IN LOW AND LOCKED POSITION CALL LIGHT WITHIN REACH, BED ALARM ON
[2022-10-29 07:32] LABS: BASOPHILS # (AUTO) 0.1 K/uL (0.0-0.2); BASOPHILS % (AUTO) 0.9 % (0.0-2.0); EOSINOPHILS # (AUTO) 0.2 K/uL (0.0-0.4); HEMATOCRIT 34.4 % (36-48); HEMOGLOBIN 11.6 g/dL (12.0-16.0); LYMPHOCYTES # (AUTO) 1.1 K/uL (1.0-5.5); LYMPHOCYTES % (AUTO) 11.2 % (20.5-51.5); MEAN CORPUSCULAR HEMOGLOBIN 31 pg (27-31); MEAN CORPUSCULAR HGB CONC 34 % (32-36); MEAN CORPUSCULAR VOLUME 93 fL (79.0-98.0); MONOCYTES # (AUTO) 0.8 K/uL (0.0-1.0); MONOCYTES % (AUTO) 7.6 % (1.7-9.3); NEUTROPHILS # (AUTO) 7.9 K/uL (1.8-7.7); NEUTROPHILS % (AUTO) 78.3 % (40.0-70.0); PLATELET COUNT (AUTO) 362 K/uL (130-430); RED BLOOD CELL COUNT(AUTO) 3.69 MIL/uL (4.2-6.2); RED CELL DISTRIBUTION WIDTH 14.3 % (9.0-15.0); WHITE BLOOD COUNT (AUTO) 10.1 K/uL (4.8-10.8)
[2022-10-29 07:41] LABS: ALANINE AMINOTRANSFERASE 31 U/L (12-78); ALBUMIN 2.1 g/dL (3.4-4.8); ANION GAP 5 (5-15); ASPARTATE AMINOTRANSFERASE 29 U/L (10-37); CALCIUM 9.1 mg/dL (8.4-11.0); CHLORIDE 107 mmol/L (98-107); CREATININE 0.66 mg/dL (0.55-1.30); GLUCOSE 95 mg/dL (70-99); TOTAL BILIRUBIN 0.5 mg/dL (0.0-1.0); UREA NITROGEN, BLOOD 32 mg/dL (8-21)
[2022-10-29] MEDS: BALSAM PERU/CASTOR OIL 56.7 GM OINT...G. TP SCH (09:00)
[2022-10-29] MEDS: MEMANTINE HCL 5 MG TABLET PO SCH ×2 (09:16→21:39)
[2022-10-29] MEDS: QUEtiapine FUMARATE 25 MG TABLET PO SCH (09:16)
[2022-10-29] MEDS: APIXABAN 2.5 MG TABLET PO SCH ×2 (09:17→21:41)
[2022-10-29] MEDS: CEFEPIME 1 GM in D5W 50 ML IV SCH (10:37)
--- NOTE | 2022-10-29 10:38 | NUR ---
NURSE NOTE PATIENT IS EXTREMELY ANXIOUS, LAYING IN BED WITH COVERS OVER HER HEAD. WHEN I GO TO TOUCH HER FOR ANYTHING SHES REPEATS "DONT TOUCH ME DONT TOUCH ME". ATTEMPTED TO TALK WITH HER REGRADING THIS AND SHE REFUSES TO ANSWER ANY QUESTIONS
--- NOTE | 2022-10-29 12:15 | NUR ---
MD DR PATEL BEDSIDE INFORMED THAT PATIENT IS CRYING AND UPSET.
--- NOTE | 2022-10-29 14:16 | NUR ---
TRANSFER OF CARE PROVIDED SBAR TO RN, BED IN LOW AND LOCKED POSITION CALL LIGHT WITHIN REACH, BED ALARM ON. ENDORSED CARE TO RN
--- NOTE | 2022-10-29 14:16 | NUR ---
Report received from JACK Rivas for continuity of care. Patient stable.
[2022-10-29] MEDS: QUEtiapine FUMARATE 100 MG TABLET PO SCH (17:14)
[2022-10-29] MEDS: DONEPEZIL HCL 5 MG TABLET (ARICEPT) PO SCH (21:39)
[2022-10-30 00:14] VITALS: BP_SYST 118
[2022-10-30 04:00] VITALS: BP_SYST 124
[2022-10-30 07:41] VITALS: BP_SYST 117
[2022-10-30] MEDS: APIXABAN 2.5 MG TABLET PO SCH ×2 (09:15→21:58)
[2022-10-30] MEDS: MEMANTINE HCL 5 MG TABLET PO SCH ×2 (09:15→21:56)
[2022-10-30] MEDS: QUEtiapine FUMARATE 25 MG TABLET PO SCH (09:16)
[2022-10-30] MEDS: BALSAM PERU/CASTOR OIL 56.7 GM OINT...G. TP SCH (09:17)
[2022-10-30 11:13] VITALS: BP_SYST 114
--- NOTE | 2022-10-30 16:26 | NUR ---
Nutrition F/U: Admitting Diagnosis: ALOC, Dehydration, Cellulitis Reviewed Pertinent Medical/Surgical Hx Medical Record, Patient Medical History Comment: per EMR: 82y female with PMHx dementia, chronic right ankle wound/cellulitis, cachexia, severe PEM, and a [place] pt BIBA from home after son found her on the floor. Pt reported with progressively worsened weakness and confusion. Pt found with right leg DVT. [place] pt, pending transfer Subjective Information: RD rounded to patient room at witnessed pt in bed with eyes closed. RD called pt name and pt responded but did not open her eyes. Pt stated her appetite was good and endorses drinking Ensure ONS when provided. Per RD chart review, Patient noted with 63% PO x 5 meals and 3 x BM on 10/30. Current Diet Order/Nutrition Support: Mechanical Soft, Raúl BID, Ensure HP TID x 11 days Patient/Significant Other Able To Verbalize Education Provided Not Indicated Pertinent Medications: Aricept, Eliquis Pertinent Labs: Drawn 10/30- BUN 32 H, BG 95 WNL Height (Feet) 5 feet Height (Inches) 4.00 inches Weight (Pounds) 115 pounds Weight (Calculated Kilograms) 52.480022 kilograms Patient Weight 52.163 kg Body Mass Index 19.74 kg/m2 %IBW 96 [place]/Adjusted Body Weight 120#/ 54.5kg Recent Weight Change No Weight Status Appropriate Gastrointestinal Symptoms None Last BM Oct 30, 2022 Difficulty With: Swallowing Food Allergies No Usual Diet At Home Regular, per pt report Current % PO 63% x 5 meals = Fair Skin Integrity Comment: Skip 16: R ankle cellulitis/wound, L knee scab; No edema documented 10/30 Estimated Energy Expenditure (kcals/day) 9070-0655 (30-35 kcal/kg CBW for GERIAT underweight BMI, cellulitis) Estimated Protein Required (g/day) 62-78 (1.2-1.5 g/kg CBW for GERIAT underweight BMI, cellulitis) Estimated Fluid Required (l/day) 1.5-1.8 (1mL/kcal for maintenance) Problem/Etiology/Signs/Symptoms * Swallowing difficulty r/t ALOC/dementia a/e/b puree diet order (On-going) * Increased nutrient needs (energy, PRO, VIT/MIN) r/t metabolic demands a/e/b estimated nutritional needs for underweight BMI, wound (On-going) * 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 a/e/b NFPE w/ moderate muscle wasting, moderate fat loss (On-going) Expected Outcomes/Goals PO intake provides >85% est nutritional needs, slow weight gain desired w/in 1-2lbs per week, improvements in skin integrity, nutrition-related labs WNL, normal bowel function w/BM q 1-3 days Dietitian Recommendations * Continue mechsoft, Raúl BID, Ensure (van/ch) HP TID (Supplements yield: 660kcals, 53g PRO) * Rec daily MVI, 250mg VIT C for wounds * Encourage good PO intake Follow-up: Due to adequate PO and regular BM/GI function, pt will be followed as low nutritional risk. - F/U in 7 days. If nutrition status changes, please consult RD Protein Energy Malnutrition: Indicated 10/21/22 Patient qualifies for moderate malnutrition in the context of chronic disease (dementia) --Moderate fat loss; Moderate muscle wasting
--- NOTE | 2022-10-30 16:31 | NUR ---
Dietitian Recommendations * Continue mechsoft, Raúl BID, Ensure (van/ch) HP TID (Supplements yield: 660kcals, 53g PRO) * Rec daily MVI, 250mg VIT C for wounds * Encourage good PO intake Please refer to nutrition F/U for details, thanks! CC, MPH, RDN
[2022-10-30] MEDS: QUEtiapine FUMARATE 100 MG TABLET PO SCH (16:37)
--- NOTE | 2022-10-30 18:41 | NUR ---
Report given to nightshift rn for continuityof care. Patient in stable condition. No distressnoted.
[2022-10-30 20:00] VITALS: BP_SYST 114
[2022-10-30] MEDS: DONEPEZIL HCL 5 MG TABLET (ARICEPT) PO SCH (21:56)
[2022-10-31 00:02] VITALS: BP_SYST 127
--- NOTE | 2022-10-31 08:00 | NUR ---
Opening Note Patient is only oriented herself, unable to re-orient, obeys commands, does not try to get out of bed, fall precautions in place. Pt. is incontinent of urine, tricia care rendered and barrier cream applied. Bilateral legs elevated with individual pillows with heels floating, pressure ulcer precautions in place and Mepilex placed on coccyx for preventative measures, no signs of acute distress.
[2022-10-31 08:55] VITALS: BP_SYST 118
[2022-10-31] MEDS: QUEtiapine FUMARATE 25 MG TABLET PO SCH (10:25)
[2022-10-31] MEDS: MEMANTINE HCL 5 MG TABLET PO SCH ×2 (10:25→21:11)
[2022-10-31] MEDS: APIXABAN 2.5 MG TABLET PO SCH ×2 (10:26→21:11)
[2022-10-31] MEDS: BALSAM PERU/CASTOR OIL 56.7 GM OINT...G. TP SCH (10:56)
[2022-10-31 13:22] VITALS: BP_SYST 133
[2022-10-31 15:50] VITALS: BP_SYST 114
--- NOTE | 2022-10-31 16:00 | NUR ---
Pt. is awake, alert, confused only oriented to herself. No complaints of pain and no signs of acute distress, assisting pt. in turning herself every 2 hours.
[2022-10-31] MEDS: QUEtiapine FUMARATE 100 MG TABLET PO SCH (18:22)
--- NOTE | 2022-10-31 19:41 | NUR ---
Closing Note Full SBAR report given to JACK Wheatley, Pt. is awake, alert, no signs of acute distress, fall precautions in place.
[2022-10-31 20:00] VITALS: BP_SYST 115
[2022-10-31] MEDS: DONEPEZIL HCL 5 MG TABLET (ARICEPT) PO SCH (21:09)
[2022-11-01 04:00] VITALS: BP_SYST 108
[2022-11-01 07:58] VITALS: BP_SYST 142
[2022-11-01] MEDS: QUEtiapine FUMARATE 25 MG TABLET PO SCH (09:14)
[2022-11-01] MEDS: MEMANTINE HCL 5 MG TABLET PO SCH (09:16)
[2022-11-01] MEDS: BALSAM PERU/CASTOR OIL 56.7 GM OINT...G. TP SCH (09:16)
[2022-11-01] MEDS: APIXABAN 2.5 MG TABLET PO SCH (09:17)
[2022-11-01 14:45] VITALS: BP_SYST 145
[2022-11-01 17:41] VITALS: BP_SYST 115
[2022-11-01] MEDS: QUEtiapine FUMARATE 100 MG TABLET PO SCH (18:00)
[2022-11-01 20:00] VITALS: BP_SYST 111
[2022-11-02] MEDS: MEMANTINE HCL 5 MG TABLET PO SCH ×3 (03:26→21:27)
[2022-11-02] MEDS: DONEPEZIL HCL 5 MG TABLET (ARICEPT) PO SCH ×2 (03:35→21:27)
[2022-11-02] MEDS: APIXABAN 2.5 MG TABLET PO SCH ×3 (03:39→21:28)
[2022-11-02 03:43] VITALS: BP_SYST 133
--- NOTE | 2022-11-02 07:12 | NUR ---
RECEIVED REPORT ON PATIENT FROM JACK ESCALANTE, ASSUMED CARE, AND STARTED ASSESSMENT.
[2022-11-02 08:00] VITALS: BP_SYST 137
[2022-11-02] MEDS ORDERED: QUEtiapine FUMARATE 100 MG TABLET ONE (09:22)
[2022-11-02] MEDS: QUEtiapine FUMARATE 25 MG TABLET PO SCH (09:26)
[2022-11-02] MEDS: QUEtiapine FUMARATE 100 MG TABLET PO SCH (09:26)
[2022-11-02] MEDS: BALSAM PERU/CASTOR OIL 56.7 GM OINT...G. TP SCH (09:30)
[2022-11-02 17:35] VITALS: BP_SYST 140
--- NOTE | 2022-11-02 19:10 | NUR ---
REPORT GIVEN TO JACK FINCH, AND CARE WAS TURNED OVER TO HER.
[2022-11-02 20:00] VITALS: BP_SYST 125
[2022-11-03] VITALS: BP_SYST 113
[2022-11-03 04:00] VITALS: BP_SYST 121
--- NOTE | 2022-11-03 05:06 | NUR ---
incontinent of urine and feaces partial bath and complete linen change done .made comfortable in bed
--- NOTE | 2022-11-03 07:04 | NUR ---
RECEIVED REPORT ON PATIENT FROM JACK FINCH, ASSUMED CARE AND STARTED ASSESSMENT.
[2022-11-03 08:00] VITALS: BP_SYST 133
[2022-11-03] MEDS: QUEtiapine FUMARATE 25 MG TABLET PO SCH (09:00)
[2022-11-03] MEDS: MEMANTINE HCL 5 MG TABLET PO SCH ×2 (09:39→22:22)
[2022-11-03] MEDS: BALSAM PERU/CASTOR OIL 56.7 GM OINT...G. TP SCH (09:41)
[2022-11-03] MEDS: APIXABAN 2.5 MG TABLET PO SCH ×2 (09:41→22:23)
[2022-11-03 11:45] VITALS: BP_SYST 128
[2022-11-03 16:51] VITALS: BP_SYST 122
[2022-11-03] MEDS: QUEtiapine FUMARATE 100 MG TABLET PO SCH (17:17)
--- NOTE | 2022-11-03 19:10 | NUR ---
REPORT GIVEN TO JACK FINCH, AND CARE WAS TURNED OVER TO HER.
[2022-11-03 20:00] VITALS: BP_SYST 141
[2022-11-03] MEDS: DONEPEZIL HCL 5 MG TABLET (ARICEPT) PO SCH (22:22)
[2022-11-04 04:00] VITALS: BP_SYST 138
--- NOTE | 2022-11-04 05:29 | NUR ---
INCONTINENT OF URINE AND FEACES UNCOPERATIVE TO BE CLEANED BUTTOCKS IS REDDENED LINEN CHANGE AND MADE COMFORTABLE IN BED
[2022-11-04 08:00] VITALS: BP_SYST 141
[2022-11-04] MEDS: QUEtiapine FUMARATE 25 MG TABLET PO SCH (08:32)
[2022-11-04] MEDS: MEMANTINE HCL 5 MG TABLET PO SCH ×2 (08:33→21:46)
[2022-11-04] MEDS: BALSAM PERU/CASTOR OIL 56.7 GM OINT...G. TP SCH (08:33)
[2022-11-04] MEDS: APIXABAN 2.5 MG TABLET PO SCH ×2 (08:35→21:46)
[2022-11-04 12:55] VITALS: BP_SYST 135
[2022-11-04 16:55] VITALS: BP_SYST 110
[2022-11-04] MEDS: QUEtiapine FUMARATE 100 MG TABLET PO SCH (18:19)
--- NOTE | 2022-11-04 19:15 | NUR ---
PATIENT RESTING IN BED, RESPIRATIONS EVEN AND UL ON RA, DENIES PAIN/DISCOMFORT. PT REMAINS STABLE. ALL NEEDS MET. BED IN LOW, SIDE RAILS x2, CALL LIGHT IN REACH. REPORT GIVEN TO PM NURSE FOR CONTINUITY OF CARE.
[2022-11-04 20:00] VITALS: BP_SYST 119
--- NOTE | 2022-11-04 20:00 | NUR ---
RECEIVED PT LYING IN BED, NO DISTRESS NOTED, DENIES PAIN. AAOX1. RA O2 SAT 98% RA. DRSG TO RT ANKLE CDI. IV SITE TO LT FA SITE CDI. Addendum: 11/05/22 at 0044 by Cheng Foster RN RN PT WITH IRRITANT DERMITISES TO BUTTOCKS AND SACRUM. PROTECTIVE BARRIER CREAM APPLIED.
[2022-11-04] MEDS: DONEPEZIL HCL 5 MG TABLET (ARICEPT) PO SCH (21:47)
[2022-11-05] VITALS: BP_SYST 128
[2022-11-05 00:24] VITALS: BP_SYST 120
[2022-11-05 08:00] VITALS: BP_SYST 135
--- NOTE | 2022-11-05 08:00 | NUR ---
AM ASSESSMENT PT AWAKENED TO VERBAL COMMAND, TURNED AND REPOSITIONED IN BED, TRAY SET UP FOR BREAKFAST HOUR.
--- NOTE | 2022-11-05 09:20 | NUR ---
HYGIENE PT BLADDER INCONTINENT, PERINEAL CARE DONE, SOAPY TOWEL AND RINSED WITH WARM WATER. MADE PT AND DRY.
[2022-11-05] MEDS: APIXABAN 2.5 MG TABLET PO SCH ×2 (09:54→20:42)
[2022-11-05] MEDS: MEMANTINE HCL 5 MG TABLET PO SCH ×2 (09:55→20:43)
[2022-11-05] MEDS: BALSAM PERU/CASTOR OIL 56.7 GM OINT...G. TP SCH (09:57)
[2022-11-05] MEDS: QUEtiapine FUMARATE 25 MG TABLET PO SCH (09:57)
[2022-11-05 11:40] VITALS: BP_SYST 142
--- NOTE | 2022-11-05 13:42 | NUR ---
ACTIVITY AMBULATED WITH P.T., NO RESPIRATORY ISSUES.
[2022-11-05] MEDS ORDERED: APIX2.5T PO (14:15)
[2022-11-05] MEDS ORDERED: ACET325T PO (14:15)
[2022-11-05] MEDS ORDERED: SER25 PO (14:15)
[2022-11-05] MEDS ORDERED: VENELEX60G TP (14:15)
[2022-11-05] MEDS ORDERED: DONE5TAB33 PO (14:15)
[2022-11-05] MEDS ORDERED: MEMA5TAB PO (14:15)
[2022-11-05] MEDS ORDERED: SER100 PO (14:15)
[2022-11-05 17:03] VITALS: BP_SYST 135
[2022-11-05] MEDS: QUEtiapine FUMARATE 100 MG TABLET PO SCH (17:16)
--- NOTE | 2022-11-05 19:48 | NUR ---
RECEIVED PT LYING IN BED. ORIENTED TO SELF. SAT PT UPRIGHT SET UP DINNER TRAY PT IS NOW EATING. DRSG TO RT FOOT CDI.
[2022-11-05] MEDS: DONEPEZIL HCL 5 MG TABLET (ARICEPT) PO SCH (20:43)
[2022-11-05 21:56] VITALS: BP_SYST 94
[2022-11-06] VITALS: BP_SYST 128
[2022-11-06] MEDS: MEMANTINE HCL 5 MG TABLET PO SCH (09:11)
[2022-11-06] MEDS: QUEtiapine FUMARATE 25 MG TABLET PO SCH (09:12)
[2022-11-06] MEDS: APIXABAN 2.5 MG TABLET PO SCH (09:13)
[2022-11-06] MEDS: BALSAM PERU/CASTOR OIL 56.7 GM OINT...G. TP SCH (09:14)
[2022-11-06 11:38] VITALS: BP_SYST 119
[2022-11-06 12:00] VITALS: BP_SYST 119
[2022-11-06 13:10] VITALS: BP_SYST 119
--- NOTE | 2022-11-06 14:33 | NUR ---
Robert has a bed for the patient at [facility]-Ambulance transport will be at 1400. Discharge packet given to RN with room # and number for report.
--- NOTE | 2022-11-06 15:14 | NUR ---
PATIENT DISCHARGED OFF UNIT AT THIS TIME, TRANSPRTED TO [facility]. THIS TONGUE AND GROOVE MACHINE FEEDER(PRIMARY RN), CALLED AND GAAVE REPORT TO NURSE ESTHER LOERA
[2022-11-06 16:46] VITALS: BP_SYST 125
== END 2022-11-06 15:10 | DRG 299 ==
LOC: SED 11:48 → STU 17:21 → SMU 10-18 21:26
PROVIDERS: ADMIT Internal Medicine; ATTEND Internal Medicine
DX: I82.401 Acute embolism and thrombosis of unspecified deep veins of right lower extremity (principal); E43 Unspecified severe protein-calorie malnutrition; G93.41 Metabolic encephalopathy; L03.115 Cellulitis of right lower limb; Z68.1 Body mass index [BMI] 19.9 or less, adult; F03.918 Unspecified dementia, unspecified severity, with other behavioral disturbance; E86.0 Dehydration; Z20.822 Contact with and (suspected) exposure to COVID-19; D72.829 Elevated white blood cell count, unspecified; S91.001A Unspecified open wound, right ankle, initial encounter; X58.XXXA Exposure to other specified factors, initial encounter; Y93.89 Activity, other specified; Y92.89 Other specified places as the place of occurrence of the external cause; Y99.8 Other external cause status
CPT/HCPCS: 36415; 70450-TC; 71045; 73560-TC; 76376; 80048; 80053; 80307; 81000; 82140; 82550; 82553; 83605; 83880; 84439; 84443; 84484; 85025; 85610-TC; 87040; 92610-GN; 93005; 93970; 94640; 94760; 96365; 97110-GP; 97112-GP; 97116-GP; 97163-GP; 97530-GP; 99285; G0378; G0480; G0481; G0482; J0295; J0692; J0696; J2543; J3370; J7050; J7060; J7120

== ENCOUNTER 2023-01-16 17:45 | Emergency (ER) | payer MEDICARE ==
[~2023-01-16] VITALS: Ht 160 cm; Wt 68.0 kg
[~2023-01-16 17:45] MED LIST: ACET325T PO; APIX2.5T PO; DONE5TAB33 PO; MEMA5TAB PO; SER100 PO; SER25 PO; VENELEX60G TP
[2023-01-16 17:58] VITALS: BP_SYST 162
--- NOTE | 2023-01-16 18:03 | NUR ---
Patient to be transferred to [facility]. Is being transferred due to higher level of care. Receiving facility has accepting physician and available space. ER physician has signed transfer form. Patient or responsible constitution party has agreed to transfer and signed form. Patient belongings inventoried and will be sent with patient. Copy of nursing notes, lab reports, EKG, Physicians Orders and X-rays to be sent with patient. Report called to at receiving facility. Receiving physician is IRON. ambulance service has been called for transfer. ETA is .
[2023-01-16] MEDS ORDERED: cefTRIAXone 1 GM IVPB PREMIX 50 ML IV ONE (19:15)
[2023-01-16] MEDS ORDERED: NACL 0.9% 1,500 ML IV ONE (19:15)
[2023-01-16 20:03] LABS: ANION GAP 9 (5-15); CHLORIDE 104 mmol/L (98-107); CREATININE 0.66 mg/dL (0.55-1.30); GLUCOSE 92 mg/dL (70-99); UREA NITROGEN, BLOOD 26 mg/dL (8-21)
[2023-01-16 20:05] LABS: BASOPHILS % (AUTO) 0.4 % (0.0-2.0); EOSINOPHILS # (AUTO) 0.2 K/uL (0.0-0.4); EOSINOPHILS % (AUTO) 1.9 % (0.0-4.0); HEMATOCRIT 40.3 % (36-48); HEMOGLOBIN 13.4 g/dL (12.0-16.0); LYMPHOCYTES # (AUTO) 0.9 K/uL (1.0-5.5); LYMPHOCYTES % (AUTO) 9.6 % (20.5-51.5); MEAN CORPUSCULAR HEMOGLOBIN 30 pg (27-31); MEAN CORPUSCULAR HGB CONC 33 % (32-36); MEAN CORPUSCULAR VOLUME 89 fL (79.0-98.0); MONOCYTES # (AUTO) 0.8 K/uL (0.0-1.0); MONOCYTES % (AUTO) 8.5 % (1.7-9.3); NEUTROPHILS # (AUTO) 7.1 K/uL (1.8-7.7); NEUTROPHILS % (AUTO) 79.6 % (40.0-70.0); PLATELET COUNT (AUTO) 278 K/uL (130-430); RED BLOOD CELL COUNT(AUTO) 4.54 MIL/uL (4.2-6.2); RED CELL DISTRIBUTION WIDTH 15.1 % (9.0-15.0); WHITE BLOOD COUNT (AUTO) 8.9 K/uL (4.8-10.8)
[2023-01-16 20:08] LABS: ALANINE AMINOTRANSFERASE 30 U/L (12-78); ALBUMIN 2.9 g/dL (3.4-4.8); ASPARTATE AMINOTRANSFERASE 47 U/L (10-37); TOTAL BILIRUBIN 0.7 mg/dL (0.0-1.0)
[2023-01-16 21:15] LABS: BILIRUBIN,URINE NEGATIVE (NEGATIVE); CLARITY/URINE CLEAR (CLEAR); COLOR,URINE YELLOW (YELLOW); GLUCOSE,URINE NEGATIVE (NEGATIVE); KETONES,URINE 1+ (NEGATIVE); LEUKOCYTE ESTERASE ,URINE 1+ (NEGATIVE); NITRITE, URINE POSITIVE (NEGATIVE); PROTEIN URINE NEGATIVE (NEGATIVE); UROBILINOGEN,URINE 0.2 (0.2-1.0)
[2023-01-16 21:18] LABS: BLOOD, URINE TRACE (NEGATIVE)
[2023-01-16 21:24] LABS: WBC,URINE 20-50 /HPF (0-3)
[2023-01-16 21:25] LABS: BACTERIA,URINE MANY /HPF (None Seen); MUCUS,URINE 2+ /LPF (None Seen); OTHER CASTS, URINE WBC CASTS 1+ /LPF (None Seen); RBC,URINE 0-3 /HPF (0-3)
--- NOTE | 2023-01-17 02:53 | NUR ---
REPORT GIVEN TO DEVYN SANTIAGO WITH [facility].
[2023-01-17 03:01] VITALS: BP_SYST 148
--- NOTE | 2023-01-17 03:17 | NUR ---
Patient to be transferred to [facility]. Is being transferred due to higher level of care. Receiving facility has accepting physician and available space. ER physician has signed transfer form. Patient or responsible alliance party has agreed to transfer and signed form. Patient belongings inventoried and will be sent with patient. Copy of nursing notes, lab reports, EKG, Physicians Orders and X-rays to be sent with patient. Report called to at receiving facility. Receiving physician is . ambulance service has been called for transfer. ETA is .
== END 2023-01-17 03:00 | disposition short-term general hospital (02) ==
LOC: SED 17:45
DX: N39.0 Urinary tract infection, site not specified (principal); R53.1 Weakness; R62.7 Adult failure to thrive; E86.0 Dehydration; Z91.419 Personal history of unspecified adult abuse; Z79.899 Other long term (current) drug therapy; Z20.822 Contact with and (suspected) exposure to COVID-19
CPT/HCPCS: 99285; 96365; 71045; 87426; 80053; 81000; 85025; 87040; 87086; 36415; 83605; J0696